=== PATIENT | female | born 1990 | race Caucasian/White ===

== ENCOUNTER 2019-06-16 06:42 | Day surgery (SDC) | payer BC, MEDICAID ==
[~2019-06-16 06:42] MED LIST: Lactated Ringers 1,000 ML IV SCH
[2019-06-16] MEDS ORDERED: Propofol 200 MG/20 ML SDV ONE (06:51)
[2019-06-16] MEDS ORDERED: Midazolam 1 MG/ML 2 ML SDV ONE (06:52)
[2019-06-16] MEDS ORDERED: fentaNYL 100 MCG/2 ML SDV ONE ×2 (06:52→08:20)
[2019-06-16] MEDS ORDERED: Glycopyrrolate 0.2 MG/ML SDV ONE (06:54)
[2019-06-16] MEDS ORDERED: Ketorolac 30 MG/ML SDV ONE (06:54)
[2019-06-16] MEDS ORDERED: Lidocaine 2% 5 ML SDV ONE (06:54)
[2019-06-16] MEDS ORDERED: Rocuronium 100 MG/10 ML Syringe ONE (06:54)
[2019-06-16] MEDS ORDERED: Ondansetron 4 MG/2 ML SDV ONE (06:54)
[2019-06-16] MEDS ORDERED: Sugammadex Sodium 200 MG/2 ML VIAL ONE (06:56)
[2019-06-16] MEDS ORDERED: Fluorescein 5 ML Vial ONE (07:24)
--- NOTE | 2019-06-16 07:34 | PCM.PREANE ---
Preanesthetic Assessment - Anesthesia/Transfusion/Family Hx Anesthesia History: Prior Anesthesia Without Reaction Other Type of Anesthesia Reaction Comment: "my mother is hard to wake after anesthesia" Family History of Anesthesia Reaction: No Transfusion History: No Prior Transfusion(s) - Review of Systems General: No Symptoms Pulmonary: No Symptoms Cardiovascular: No Symptoms Gastrointestinal: No Symptoms Neurological: No Symptoms - Physical Assessment NPO Status Date: 06/16/19 NPO Status Time: 06:00 Vital Signs: Last Vital Signs Temp 96.4 F 06/16/19 06:59 Pulse 96 06/16/19 06:59 Resp 18 06/16/19 06:59 BP 140/83 06/16/19 06:59 Pulse Ox 98 06/16/19 06:59 Height: 5 ft 10 in Weight: 156.943 kg ASA Class: 2 Mental Status: Alert & Oriented x3 Airway Class: Mallampati = 2 Dentition: Reports: Normal Dentition ROM/Head Extension: Full Lungs: Clear to Auscultation, Normal Respiratory Effort Cardiovascular: Regular Rate, Regular Rhythm - Lab Values: Laboratory Last Values Urine HCG, Qual NEGATIVE (NEGATIVE) 06/16/19 06:45 - Allergies Allergies/Adverse Reactions: Allergies Allergy/AdvReac Type Severity Reaction Status Date / Time terbinafine Allergy Hives Verified 06/10/19 09:12 - Blood Blood Available: No - Anesthesia Plan Pre-Op Medication Ordered: None - Acknowledgements Anesthesia Type Planned: General Anesthesia Pt an Appropriate Candidate for the Planned Anesthesia: Yes Alternatives and Risks of Anesthesia Discussed w Pt/Guardian: Yes Pt/Guardian Understands and Agrees with Anesthesia Plan: Yes Additional Comments: PMH: morbid obesity with BMI of 49, good airway, good neck, denies KENJI sx, hx of anx/dep PLAN: ga/lma or GET PreAnesthesia Questionnaire HEENT History: Reports: Other (See Below) Other HEENT History: wears glasses Cardiovascular History: Reports: None Respiratory History: Reports: Other (See Below) Other Respiratory History: asthma as a child Gastrointestinal History: Reports: Other (See Below) Other Gastrointestinal History: occasional heartburn Genitourinary History: Reports: Other (See Below) Other Genitourinary History: stress incontinence 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: Reports: Musculoskeletal History: Reports: Back Pain, Chronic, Fracture Other Musculoskeletal History: hx fx ankle as a child Neurological History: Reports: None Psychiatric History: Reports: Anxiety, Depression, PTSD Other Psychiatric History: panic disorder Endocrine/Metabolic History: Reports: Obesity/BMI 30+ Hematologic History: Reports: None Immunologic History: Reports: None Oncologic (Cancer) History: Reports: None Dermatologic History: Reports: None - Past Surgical History Head Surgeries/Procedures: Reports: None HEENT Surgical History: Reports: None Cardiovascular Surgical History: Reports: None Respiratory Surgical History: Reports: None GI Surgical History: Reports: Cholecystectomy Female Surgical History: Reports: Other (See Below) Other Female Surgeries/Procedures: abdoul salpingectomy Endocrine Surgical History: Reports: None Neurological Surgical History: Reports: None Musculoskeletal Surgical History: Reports: None Oncologic Surgical History: Reports: None Dermatological Surgical History: Reports: None - SUBSTANCE USE Smoking Status *Q: Former Smoker Tobacco Use Within Last Twelve Months: No Days Per Week of Alcohol Use: 4 Number of Drinks Per Day: 2 Total Drinks Per Week: 8 - HOME MEDS Home Medications: Home Meds Melatonin 3 mg PO BEDTIME PRN 06/10/19 [History] PARoxetine HCl [Paroxetine HCl] 20 mg PO DAILY 06/10/19 [History] lamoTRIgine [Lamotrigine] 150 mg PO DAILY 06/10/19 [History] - CURRENT (IN HOUSE) MEDS Current Meds: Current Medications Lactated Ringer's (Ringers, Lactated) 1,000 mls @ 100 mls/hr IV ASDIRECTED [facility] Last Admin: 06/16/19 07:19 Dose: 100 mls/hr Discontinued Medications Fentanyl (Sublimaze) Confirm Administered Dose 100 mcg .ROUTE .STK-MED ONE Stop: 06/16/19 06:53 Fluorescein Sodium (Ak-Fluor) Confirm Administered Dose 5 ml .ROUTE .STK-MED ONE Stop: 06/16/19 07:25 Glycopyrrolate (Robinul) Confirm Administered Dose 0.2 mg .ROUTE .STK-MED ONE Stop: 06/16/19 06:55 Ketorolac Tromethamine (Toradol) Confirm Administered Dose 30 mg .ROUTE .STK- MED ONE Stop: 06/16/19 06:55 Lidocaine (Xylocaine-Mpf 2%) Confirm Administered Dose 5 ml .ROUTE .STK-MED ONE Stop: 06/16/19 06:55 Midazolam HCl (Versed 1 Mg/Ml) Confirm Administered Dose 2 mg .ROUTE .STK-MED ONE Stop: 06/16/19 06:53 Ondansetron HCl (Zofran) Confirm Administered Dose 4 mg .ROUTE .Jamn ONE Stop: 06/16/19 06:55 Propofol (Diprivan 20 Ml) Confirm Administered Dose 200 mg .ROUTE .Jamn ONE Stop: 06/16/19 06:52 Rocuronium [place] (Zemuron) Confirm Administered Dose 100 mg .ROUTE .Jamn ONE Stop: 06/16/19 06:55 Sugammadex Sodium (Bridion) Confirm Administered Dose 200 mg .ROUTE .Jamn ONE Stop: 06/16/19 06:57
[2019-06-16] MEDS ORDERED: Phenylephrine/Normal Saline 100 MCG/ML 10 ML Syringe ONE (08:14)
--- NOTE | 2019-06-16 09:02 | PCM.DCSUM1 ---
Discharge Summary - Hospital Course Diagnosis: Stroke: No - Discharge Data Discharge Date: 06/16/19 Discharge Disposition: Home, Self-Care 01 Condition: Good - Referral to Home Health Primary Care Physician: Aminta Levi NP - Patient Instructions Diet: Usual Diet as Tolerated Activity: As Tolerated Showering/Bathing: October Shower Notify Provider of: Fever - Discharge Plan Home Medications: Home Meds Melatonin 3 mg PO BEDTIME PRN 06/10/19 [History] PARoxetine HCl [Paroxetine HCl] 20 mg PO DAILY 06/10/19 [History] lamoTRIgine [Lamotrigine] 150 mg PO DAILY 06/10/19 [History] - Discharge Summary/Plan Comment DC Time >30 min.: Yes - General Info Date of Service: 06/16/19 Functional Status: Reports: Pain Controlled - Review of Systems General: Reports: No Symptoms HEENT: Reports: No Symptoms Pulmonary: Reports: No Symptoms Cardiovascular: Reports: No Symptoms Gastrointestinal: Reports: No Symptoms Genitourinary: Reports: No Symptoms Musculoskeletal: Reports: No Symptoms Skin: Reports: No Symptoms Neurological: Reports: No Symptoms Psychiatric: Reports: No Symptoms - Patient Data Vitals - Most Recent: Last Vital Signs Temp 37.0 C 06/16/19 08:44 Pulse 80 06/16/19 08:55 Resp 15 06/16/19 08:55 BP 101/58 L 06/16/19 08:55 Pulse Ox 95 06/16/19 08:55 Weight - Most Recent: 156.943 kg I&O - Last 24 hours: Intake & Output 06/15/19 06/16/19 06/16/19 22:59 06:59 14:59 Intake Total 800 Balance 800 Lab Results - Last 24 hrs: Laboratory Results - last 24 hr 06/16/19 Range/Units 06:45 Urine HCG, Qual NEGATIVE (NEGATIVE) Med Orders - Current: Current Medications Lactated Ringer's (Ringers, Lactated) 1,000 mls @ 100 mls/hr IV ASDIRECTED [facility] Last Admin: 06/16/19 07:19 Dose: 100 mls/hr Discontinued Medications Fentanyl (Sublimaze) Confirm Administered Dose 100 mcg .ROUTE .STK-MED ONE Stop: 06/16/19 06:53 Fentanyl (Sublimaze) Confirm Administered Dose 100 mcg .ROUTE .STK-MED ONE Stop: 06/16/19 08:21 Fluorescein Sodium (Ak-Fluor) Confirm Administered Dose 5 ml .ROUTE .STK-MED ONE Stop: 06/16/19 07:25 Glycopyrrolate (Robinul) Confirm Administered Dose 0.2 mg .ROUTE .STK-MED ONE Stop: 06/16/19 06:55 Ketorolac Tromethamine (Toradol) Confirm Administered Dose 30 mg .ROUTE .STK- MED ONE Stop: 06/16/19 06:55 Lidocaine (Xylocaine-Mpf 2%) Confirm Administered Dose 5 ml .ROUTE .STK-MED ONE Stop: 06/16/19 06:55 Midazolam HCl (Versed 1 Mg/Ml) Confirm Administered Dose 2 mg .ROUTE .STK-MED ONE Stop: 06/16/19 06:53 Ondansetron HCl (Zofran) Confirm Administered Dose 4 mg .ROUTE .STK-MED ONE Stop: 06/16/19 06:55 Phenylephrine HCl (Phenylephrine In Ns 100 Mcg/Ml) Confirm Administered Dose 1 mg .ROUTE .STK-MED ONE Stop: 06/16/19 08:15 Propofol (Diprivan 20 Ml) Confirm Administered Dose 200 mg .ROUTE .STK-MED ONE Stop: 06/16/19 06:52 Rocuronium [place] (Zemuron) Confirm Administered Dose 100 mg .ROUTE .STK-MED ONE Stop: 06/16/19 06:55 Sugammadex Sodium (Bridion) Confirm Administered Dose 200 mg .ROUTE .STK-MED ONE Stop: 06/16/19 06:57 - Exam General: Reports: Alert, Oriented HEENT: Reports: Pupils Equal, Pupils Reactive, EOMI, Mucous Membr. Moist/Burr Neck: Reports: Supple Lungs: Reports: Clear to Auscultation, Normal Respiratory Effort Cardiovascular: Reports: Regular Rate, Regular Rhythm GI/Abdominal Exam: Normal Bowel Sounds, Soft, Non-Tender, No Organomegaly, No Distention, No Abnormal Bruit, No Mass, Pelvis Stable (Female) Exam: Normal External Exam, Normal Speculum Exam, Normal Bimanual Exam Rectal (Female) Exam: Normal Exam, Normal Rectal Tone Back Exam: Reports: Normal Inspection, Full Range of Motion Extremities: Normal Inspection, Normal Range of Motion, Non-Tender, No Pedal Edema, Normal Capillary Refill Skin: Reports: Warm, Dry, Intact Wound/Incisions: Reports: Healing Well Neurological: Reports: No New Focal Deficit Psy/Mental Status: Reports: Alert, Normal Affect, Normal Mood
--- NOTE | 2019-06-16 09:03 | PCM.OPNOTE ---
- General Post-Op/Procedure Note Date of Surgery/Procedure: 06/16/19 Operative Procedure(s): TVT and Ctstoscopy. Post-Op Diagnosis: Same Anesthesia Technique: General LMA Primary Surgeon: Hugo Madden EBL in mLs: 50 Complications: None Condition: Good Free Text/Narrative:: Intake & Output 06/15/19 06/16/19 06/16/19 22:59 06:59 14:59 Intake Total 800 Balance 800
--- NOTE | 2019-06-16 10:01 | PCM.POSTAN ---
POST ANESTHESIA ASSESSMENT - MENTAL STATUS Mental Status: Alert, Oriented - VITAL SIGNS Vital Signs: Last Vital Signs Temp 98.4 F 06/16/19 09:10 Pulse 73 06/16/19 09:10 Resp 15 06/16/19 09:10 BP 105/58 L 06/16/19 09:10 Pulse Ox 98 06/16/19 09:10 - RESPIRATORY Respiratory Status: Respiratory Rate WNL, Airway Patent, O2 Saturation Stable - CARDIOVASCULAR CV Status: Pulse Rate WNL, Blood Pressure Stable - GASTROINTESTINAL GI Status: No Symptoms - POST OP HYDRATION Hydration Status: Adequate & Stable
--- NOTE | 2019-06-16 10:02 | PCM48HPAN ---
Post Anesthesia Note - EVALUATION WITHIN 48HRS OF ANESTHETIC Vital Signs in Normal Range: Yes Patient Participated in Evaluation: Yes Respiratory Function Stable: Yes Airway Patent: Yes Cardiovascular Function Stable: Yes Hydration Status Stable: Yes Pain Control Satisfactory: Yes Nausea and Vomiting Control Satisfactory: Yes Mental Status Recovered: Yes Vital Signs: Last Vital Signs Temp 98.4 F 06/16/19 09:10 Pulse 73 06/16/19 09:10 Resp 15 06/16/19 09:10 BP 105/58 L 06/16/19 09:10 Pulse Ox 98 06/16/19 09:10
--- NOTE | 2019-06-16 11:02 | OR ---
SURGEON: Hugo Madden MD DATE OF PROCEDURE: PREOPERATIVE DIAGNOSIS: Stress urinary incontinence. POSTOPERATIVE DIAGNOSIS: Stress urinary incontinence. OPERATION PERFORMED: Solyx TVT with cystoscopy. PRIMARY SURGEON: Hugo Madden MD. JEWEL[employer] SALES: OR tech. ANESTHESIA: General LMA. ESTIMATED BLOOD LOSS: 50 to 75 mL. COMPLICATIONS: None. FINDING: Stress urinary incontinence. INDICATIONS FOR SURGERY: [place] referred to the admit note. PROCEDURE IN DETAIL: The patient was brought to the OR, properly identified, and after adequate level of anesthesia, the patient was placed in lithotomy position, prepped and draped in sterile fashion as usual. Straight catheter was used to empty the bladder and then midurethral space was infiltrated with copious amount of normal saline and using electrocautery was opened in the midline and then the vaginal terry dissected in a tunneling fashion to make room for the Solyx. When entered, the surgeon could feel the pubic rami on both sides. Then, the Solyx TVT was placed within place with a due amount of tension to elevate the urethrovesical angle. Once this was done, we asked Anesthesia to give the patient fluorescein and then we proceeded to close the vaginal cuff with 3-0 Vicryl continuous interlocking for hemostasis. After that, cystoscopy performed, the bladder was intact. Both ureteric orifices seen with the dye coming from both of them. Thus, patency of both ureters verified. Satisfied with these findings, the procedure ended. The instrument and sponge count was correct. The patient tolerated the procedure well, went to recovery room in stable general condition. KACOLETTEFAR / JUJU /[id number]
== END 2019-06-16 09:46 | disposition home or self-care (01) ==
LOC: MW.SDS 06:42
PROVIDERS: ATTEND Obstetrics & Gynecology
DX: N39.3 Stress incontinence (female) (male) (principal); N39.45 Continuous leakage; J45.909 Unspecified asthma, uncomplicated; F41.9 Anxiety disorder, unspecified; F32.9 Major depressive disorder, single episode, unspecified; E66.9 Obesity, unspecified; Z68.42 Body mass index [BMI] 45.0-49.9, adult; Z87.891 Personal history of nicotine dependence; Z88.8 Allergy status to other drugs, medicaments and biological substances
CPT/HCPCS: 57288; 81025; J1885; J2001; J2250; J2370; J2405; J2704; J3010; J3490; J7120; 00860; C1771

== ENCOUNTER 2019-11-02 10:40 | Day surgery (SDC) | payer BC, MEDICAID ==
[2019-11-02] MEDS ORDERED: Sodium Chloride 0.9% 2.5 ML Syringe FLUSH PRN ×2 (10:57→13:25)
[2019-11-02] MEDS ORDERED: Sodium Chloride 0.9% 10 ML Syringe FLUSH PRN ×2 (10:57→13:25)
[2019-11-02] MEDS ORDERED: Ketorolac 30 MG/ML SDV IVPUSH ONE (11:06)
[2019-11-02] MEDS ORDERED: Sodium Chloride 0.9% 1,000 ML IV ONE (11:06)
--- NOTE | 2019-11-02 11:07 | EDM.PDOC ---
ED HPI GENERAL MEDICAL PROBLEM - General Chief Complaint: Abdominal Pain Stated Complaint: LOWER ABDOMINAL PAIN Time Seen by Provider: 11/02/19 11:03 Source of Information: Reports: Patient History Limitations: Reports: No Limitations - History of Present Illness INITIAL COMMENTS - FREE TEXT/NARRATIVE: HISTORY AND PHYSICAL: History of present illness: Patient is a 29-year-old female presents to the ED with complaint of right lower abdominal pain. Patient states that the pain started 2 days ago, is worse with movement. Pain starts in the right lower abdomen and radiates to her umbilicus. She states she has had some nausea, vomiting, and non bloody diarrhea. Denies fevers, dysuria, hematuria. She has not had an appetite and last ate last night. She has history of pelvic surgery with a bladder sling as well as a cholecystectomy. Review of systems: As per history of present illness and below otherwise all systems reviewed and negative. Past medical history: As per history of present illness and as reviewed below otherwise noncontributory. Surgical history: As per history of present illness and as reviewed below otherwise noncontributory. Social history: No reported history of drug or alcohol abuse. Family history: As per history of present illness and as reviewed below otherwise noncontributory. Physical exam: General: Patient sitting comfortably in no acute distress and nontoxic appearing HEENT: Atraumatic, normocephalic, pupils reactive, negative for conjunctival pallor or scleral icterus, mucous membranes moist, throat clear, neck supple, nontender, trachea midline. No meningeal signs. Lungs: Clear to auscultation, breath sounds equal bilaterally, chest nontender. Heart: S1S2, regular, negative for clicks, rubs, or overt murmur. Abdomen: right lower quadrant tenderness to palpation with rebound and guarding. Negative for masses or hepatosplenomegaly. Negative for costovertebral tenderness. Pelvis: Stable nontender. Genitourinary: Deferred. Rectal: Deferred. Extremities: Atraumatic, negative for cords or calf pain. Neurovascular unremarkable. Neuro: Awake, alert, oriented. Cranial nerves II through XII unremarkable. Cerebellum unremarkable. Motor and sensory unremarkable throughout. Exam nonfocal. Notes: 1250 - discussed findings of appendicitis with Dr. Bae, he will evaluate patient in the ED. Diagnostics: CBC, CMP, UA, urine hcg Therapeutics: 1L NS IV 30mg Toradol IV Prescriptions: Impression: Appendicitis Plan: Patient to OR for appendectomy Definitive disposition and diagnosis as appropriate pending reevaluation and review of above. right lower abdomen Pain Score (Numeric/FACES): 5 - Related Data Allergies Allergy/AdvReac Type Severity Reaction Status Date / Time terbinafine Allergy Hives Verified 11/02/19 10:53 Home Meds: Home Meds Melatonin 3 mg PO BEDTIME PRN 06/10/19 [History] lamoTRIgine [Lamotrigine] 150 mg PO DAILY 06/10/19 [History] Escitalopram Oxalate [Lexapro] 10 mg PO DAILY 11/02/19 [History] hydrOXYzine HCL [hydrOXYzine] 0.5 tab PO DAILY PRN 11/02/19 [History] Past Medical History HEENT History: Reports: Other (See Below) Other HEENT History: wears glasses Cardiovascular History: Reports: None Respiratory History: Reports: Other (See Below) Other Respiratory History: asthma as a child Gastrointestinal History: Reports: Other (See Below) Other Gastrointestinal History: occasional heartburn Genitourinary History: Reports: Other (See Below) Other Genitourinary History: stress incontinence [employer]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 [employer] History: Reports: Musculoskeletal History: Reports: Back Pain, Chronic, Fracture Other Musculoskeletal History: hx fx ankle as a child Neurological History: Reports: None Psychiatric History: Reports: Anxiety, Depression, PTSD Other Psychiatric History: panic disorder Endocrine/Metabolic History: Reports: Obesity/BMI 30+ Hematologic History: Reports: None Immunologic History: Reports: None Oncologic (Cancer) History: Reports: None Dermatologic History: Reports: None - Infectious Disease History Infectious Disease History: Reports: Chicken Pox, MRSA - Past Surgical History Head Surgeries/Procedures: Reports: None HEENT Surgical History: Reports: None Cardiovascular Surgical History: Reports: None Respiratory Surgical History: Reports: None GI Surgical History: Reports: Cholecystectomy Female Surgical History: Reports: Other (See Below) Other Female Surgeries/Procedures: abdoul salpingectomy, TVT Endocrine Surgical History: Reports: None Neurological Surgical History: Reports: None Musculoskeletal Surgical History: Reports: None Oncologic Surgical History: Reports: None Dermatological Surgical History: Reports: None Social & Family History - Family History Family Medical History: Noncontributory - Tobacco Use Smoking Status *Q: Never Smoker - Alcohol Use Days Per Week of Alcohol Use: 5 Number of Drinks Per Day: 4 Total Drinks Per Week: 20 - Recreational Drug Use Recreational Drug Use: No ED ROS GENERAL - Review of Systems Review Of Systems: Comprehensive ROS is negative, except as noted in HPI. ED EXAM, GI/ABD - Physical Exam Exam: See Below (see dictation) Course - Vital Signs Last Recorded V/S: Last Vital Signs Temp 97.3 F 11/02/19 13:47 Pulse 88 11/02/19 13:47 Resp 17 11/02/19 13:47 BP 140/79 11/02/19 13:47 Pulse Ox 98 11/02/19 13:47 - Orders/Labs/Meds Orders: Active Orders 24 hr Category Date Time Status Admission Status [Patient Status] [ADT] Stat ADT 11/02/19 13:02 Ordered Verify Patient Consent Obtain [RC] ASDIRECTED Care 11/02/19 13:25 Active Verify Patient Consent Obtain [RC] ASDIRECTED Care 11/02/19 13:34 Active NPO Now [Nothing per Oral Now Diet] [DIET] Diet 11/02/19 Dinner Active Nothing per Oral Now Diet [DIET] Diet 11/02/19 Breakfast Active Lactated Ringers [Ringers, Lactated] 1,000 ml Med 11/02/19 13:45 Active IV ASDIRECTED Sodium Chloride 0.9% [Normal Saline] Med 11/02/19 13:25 Active 10 ml IV ASDIRECTED PRN Sodium Chloride 0.9% [Saline Flush] Med 11/02/19 10:57 Active 10 ml FLUSH ASDIRECTED PRN Sodium Chloride 0.9% [Saline Flush] Med 11/02/19 13:25 Active 10 ml FLUSH ASDIRECTED PRN Sodium Chloride 0.9% [Saline Flush] Med 11/02/19 10:57 Active 2.5 ml FLUSH ASDIRECTED PRN Sodium Chloride 0.9% [Saline Flush] Med 11/02/19 13:25 Active 2.5 ml FLUSH ASDIRECTED PRN Medication Administration Instruction [OM.PC] Routine Oth 11/02/19 13:25 Ordered Peripheral IV Insertion Adult [OM.PC] Routine Oth 11/02/19 13:25 Ordered Saline Lock Insert [OM.PC] Stat Oth 11/02/19 10:57 Ordered Medication Orders Lactated Ringer's (Ringers, Lactated) 1,000 mls @ 150 mls/hr IV ASDIRECTED ANJALI Last Admin: 11/02/19 13:44 Dose: 150 mls/hr Sodium Chloride (Saline Flush) 10 ml FLUSH ASDIRECTED PRN PRN Reason: Keep Vein Open Last Admin: 11/02/19 11:36 Dose: 10 ml Sodium Chloride (Saline Flush) 2.5 ml FLUSH ASDIRECTED PRN PRN Reason: Keep Vein Open Last Admin: 11/02/19 11:36 Dose: 2.5 ml Sodium Chloride (Saline Flush) 10 ml FLUSH ASDIRECTED PRN PRN Reason: Keep Vein Open Last Admin: 11/02/19 13:45 Dose: 10 ml Sodium Chloride (Saline Flush) 2.5 ml FLUSH ASDIRECTED PRN PRN Reason: Keep Vein Open Last Admin: 11/02/19 13:45 Dose: 2.5 ml Sodium Chloride (Normal Saline) 10 ml IV ASDIRECTED PRN PRN Reason: IV Use Last Admin: 11/02/19 13:45 Dose: 10 ml Labs: Laboratory Tests 11/02/19 11/02/19 11/02/19 Range/Units 11:06 11:06 11:08 WBC 12.04 H (4.0-11.0) K/uL RBC 4.23 L (4.30-5.90) M/uL Hgb 12.6 (12.0-16.0) g/dL Hct 39.1 (36.0-46.0) % MCV 92.4 (80.0-98.0) fL MCH 29.8 (27.0-32.0) pg MCHC 32.2 (31.0-37.0) g/dL RDW Std Deviation 48.3 (28.0-62.0) fl RDW Coeff of Yolanda 14 (11.0-15.0) % Plt Count 323 (150-400) K/uL MPV 9.80 (7.40-12.00) fL Neut % (Auto) 72.2 (48.0-80.0) % Lymph % (Auto) 18.4 (16.0-40.0) % [place] % (Auto) 6.5 (0.0-15.0) % Eos % (Auto) 2.7 (0.0-7.0) % Baso % (Auto) 0.2 (0.0-1.5) % Neut # (Auto) 8.7 H (1.4-5.7) K/uL Lymph # (Auto) 2.2 (0.6-2.4) K/uL [place] # (Auto) 0.8 (0.0-0.8) K/uL Eos # (Auto) 0.3 (0.0-0.7) K/uL Baso # (Auto) 0.0 (0.0-0.1) K/uL Nucleated RBC % 0.0 /100WBC Nucleated RBCs # 0 K/uL Sodium (136-145) mmol/L Potassium (3.5-5.1) mmol/L Chloride (98-107) mmol/L Carbon Dioxide (21.0-32.0) mmol/L BUN (7.0-18.0) mg/dL Creatinine (0.6-1.0) mg/dL Est Cr Clr Drug Dosing mL/min Estimated GFR (MDRD) ml/min Glucose (74-106) mg/dL Calcium (8.5-10.1) mg/dL Total Bilirubin (0.2-1.0) mg/dL AST (15-37) IU/L ALT (14-63) IU/L Alkaline Phosphatase (46-116) U/L Total Protein (6.4-8.2) g/dL Albumin (3.4-5.0) g/dL Globulin (2.6-4.0) g/dL Albumin/Globulin Ratio (0.9-1.6) Urine Color YELLOW Urine Appearance CLEAR Urine pH 6.0 (5.0-8.0) Ur Specific [place] 1.010 (1.001-1.035) Urine Protein NEGATIVE (NEGATIVE) mg/dL Urine Glucose (UA) NEGATIVE (NEGATIVE) mg/dL Urine Ketones NEGATIVE (NEGATIVE) mg/dL Urine Occult Blood TRACE-INTACT H (NEGATIVE) Urine Nitrite NEGATIVE (NEGATIVE) Urine Bilirubin NEGATIVE (NEGATIVE) Urine Urobilinogen 0.2 (<2.0) EU/dL Ur Leukocyte Esterase NEGATIVE (NEGATIVE) Urine RBC 0-2 (0-2/HPF) Urine WBC 0-1 (0-5/HPF) Ur Epithelial Cells OCCASIONAL (NONE-FEW) Urine Bacteria FEW (NEGATIVE) Urine HCG, Qual NEGATIVE (NEGATIVE) SARS-CoV-2 RNA (RT-PCR) (NEGATIVE) 11/02/19 11/02/19 Range/Units 11:08 13:27 WBC (4.0-11.0) K/uL RBC (4.30-5.90) M/uL Hgb (12.0-16.0) g/dL Hct (36.0-46.0) % MCV (80.0-98.0) fL MCH (27.0-32.0) pg MCHC (31.0-37.0) g/dL RDW Std Deviation (28.0-62.0) fl RDW Coeff of Yolanda (11.0-15.0) % Plt Count (150-400) K/uL MPV (7.40-12.00) fL Neut % (Auto) (48.0-80.0) % Lymph % (Auto) (16.0-40.0) % [place] % (Auto) (0.0-15.0) % Eos % (Auto) (0.0-7.0) % Baso % (Auto) (0.0-1.5) % Neut # (Auto) (1.4-5.7) K/uL Lymph # (Auto) (0.6-2.4) K/uL [place] # (Auto) (0.0-0.8) K/uL Eos # (Auto) (0.0-0.7) K/uL Baso # (Auto) (0.0-0.1) K/uL Nucleated RBC % /100WBC Nucleated RBCs # K/uL Sodium 138 (136-145) mmol/L Potassium 4.1 (3.5-5.1) mmol/L Chloride 101 (98-107) mmol/L Carbon Dioxide 27.3 (21.0-32.0) mmol/L BUN 9 (7.0-18.0) mg/dL Creatinine 1.0 (0.6-1.0) mg/dL Est Cr Clr Drug Dosing 88.31 mL/min Estimated GFR (MDRD) > 60.0 ml/min Glucose 110 H (74-106) mg/dL Calcium 8.7 (8.5-10.1) mg/dL Total Bilirubin 0.7 (0.2-1.0) mg/dL AST 43 H (15-37) IU/L ALT 31 (14-63) IU/L Alkaline Phosphatase 87 (46-116) U/L Total Protein 7.6 (6.4-8.2) g/dL Albumin 3.7 (3.4-5.0) g/dL Globulin 3.9 (2.6-4.0) g/dL Albumin/Globulin Ratio 0.9 (0.9-1.6) Urine Color Urine Appearance Urine pH (5.0-8.0) Ur Specific [place] (1.001-1.035) Urine Protein (NEGATIVE) mg/dL Urine Glucose (UA) (NEGATIVE) mg/dL Urine Ketones (NEGATIVE) mg/dL Urine Occult Blood (NEGATIVE) Urine Nitrite (NEGATIVE) Urine Bilirubin (NEGATIVE) Urine Urobilinogen (<2.0) EU/dL Ur Leukocyte Esterase (NEGATIVE) Urine RBC (0-2/HPF) Urine WBC (0-5/HPF) Ur Epithelial Cells (NONE-FEW) Urine Bacteria (NEGATIVE) Urine HCG, Qual (NEGATIVE) SARS-CoV-2 RNA (RT-PCR) NEGATIVE (NEGATIVE) Meds: Medications Generic Name Dose Route Start Last Admin Trade Name Freq PRN Reason Stop Dose Admin Lactated Ringer's 1,000 mls @ 150 mls/hr 11/02/19 13:45 11/02/19 13:44 Ringers, Lactated IV 150 mls/hr ASDIRECTED ANJALI Administration Sodium Chloride 10 ml 11/02/19 10:57 11/02/19 11:36 Saline Flush FLUSH 10 ml ASDIRECTED PRN Administration Keep Vein Open Sodium Chloride 2.5 ml 11/02/19 10:57 11/02/19 11:36 Saline Flush FLUSH 2.5 ml ASDIRECTED PRN Administration Keep Vein Open Sodium Chloride 10 ml 11/02/19 13:25 11/02/19 13:45 Saline Flush FLUSH 10 ml ASDIRECTED PRN Administration Keep Vein Open Sodium Chloride 2.5 ml 11/02/19 13:25 11/02/19 13:45 Saline Flush FLUSH 2.5 ml ASDIRECTED PRN Administration Keep Vein Open Sodium Chloride 10 ml 11/02/19 13:25 11/02/19 13:45 Normal Saline IV 10 ml ASDIRECTED PRN Administration IV Use Discontinued Medications Generic Name Dose Route Start Last Admin Trade Name Jose PRN Reason Stop Dose Admin Bupivacaine HCl/Epinephrine Bitart Confirm 11/02/19 13:17 Marcaine 0.25%/Epinephrine 1:200,000 Administered 11/02/19 13:18 Dose 20 ml .ROUTE .STK-MED ONE Dexamethasone Confirm 11/02/19 13:19 Dexamethasone Administered 11/02/19 13:20 Dose 20 mg .ROUTE .STK-MED ONE Fentanyl Confirm 11/02/19 13:19 Sublimaze Administered 11/02/19 13:20 Dose 250 mcg .ROUTE .STK-MED ONE Sodium Chloride 1,000 mls @ 999 mls/hr 11/02/19 11:06 11/02/19 11:22 Normal Saline IV 11/02/19 12:06 999 mls/hr STAT ONE Administration Acetaminophen Confirm 11/02/19 13:20 Ofirmev Administered 11/02/19 13:21 Dose 100 mls @ as directed .ROUTE .STK-MED ONE Cefoxitin Sodium 2 gm/ Premix 50 mls @ 100 mls/hr 11/02/19 13:32 11/02/19 13: 44 IV 11/02/19 14:01 100 mls/hr ONETIME ONE Administration Iopamidol 100 ml 11/02/19 12:13 11/02/19 12:25 Isovue Multipack-370 (76%) IVPUSH 11/02/19 12:14 100 ml ONETIME STA Administration Ketorolac Tromethamine 30 mg 11/02/19 11:06 11/02/19 11:22 Toradol IVPUSH 11/02/19 11:07 30 mg ONETIME ONE Administration Lidocaine Confirm 11/02/19 13:19 Xylocaine-Mpf 2% Administered 11/02/19 13:20 Dose 5 ml .ROUTE .STK-MED ONE Midazolam HCl Confirm 11/02/19 13:20 Versed 1 Mg/Ml Administered 11/02/19 13:21 Dose 2 mg .ROUTE .STK-MED ONE Ondansetron HCl Confirm 11/02/19 13:19 Zofran Administered 11/02/19 13:20 Dose 4 mg .ROUTE .STK-MED ONE Propofol Confirm 11/02/19 13:19 Diprivan 20 Ml Administered 11/02/19 13:20 Dose 200 mg .ROUTE .STK-MED ONE Rocuronium [place] Confirm 11/02/19 13:19 Zemuron Administered 11/02/19 13:20 Dose 100 mg .ROUTE .STK-MED ONE Sugammadex Sodium Confirm 11/02/19 13:19 Bridion Administered 11/02/19 13:20 Dose 400 mg .ROUTE .STK-MED ONE Departure - Departure Time of Disposition: 14:07 Disposition: Still A Patient 30 Condition: Good Clinical Impression: Appendicitis - Discharge Information Referrals: Farheen Levi NP [Primary Care Provider] - Forms: ED Department Discharge Sepsis Event Note - Evaluation Sepsis Screening Result: No Definite Risk - Focused Exam Vital Signs: Vital Signs Temp Pulse Resp BP Pulse Ox 11/02/19 13:47 97.3 F 88 17 140/79 98 11/02/19 12:40 97.1 F 77 15 115/57 L 100 11/02/19 10:51 96.5 F L 108 H 16 125/82 97 Date Exam was Performed: 11/02/19 Time Exam was Performed: 14:07 - My Orders Last 24 Hours: My Active Orders 11/02/19 10:57 Sodium Chloride 0.9% [Saline Flush] 10 ml FLUSH ASDIRECTED PRN Sodium Chloride 0.9% [Saline Flush] 2.5 ml FLUSH ASDIRECTED PRN Saline Lock Insert [OM.PC] Stat 11/02/19 13:02 Admission Status [Patient Status] [ADT] Stat - Assessment/Plan Last 24 Hours: My Active Orders 11/02/19 10:57 Sodium Chloride 0.9% [Saline Flush] 10 ml FLUSH ASDIRECTED PRN Sodium Chloride 0.9% [Saline Flush] 2.5 ml FLUSH ASDIRECTED PRN Saline Lock Insert [OM.PC] Stat 11/02/19 13:02 Admission Status [Patient Status] [ADT] Stat
[2019-11-02 11:48] LABS: BLOOD UREA NITROGEN,BUN 9 mg/dL (7.0-18.0); CARBON DIOXIDE,CO2 27.3 mmol/L (21.0-32.0); CHLORIDE,CL 101 mmol/L (98-107); GLUCOSE RANDOM 110 mg/dL (74-106); POTASSIUM,K 4.1 mmol/L (3.5-5.1); SODIUM,NA 138 mmol/L (136-145)
[2019-11-02] MEDS ORDERED: Iopamidol 755 MG/ML 500 ML Multipack Bottle IVPUSH STA (12:13)
--- NOTE | 2019-11-02 12:44 | CT ---
CT abdomen and pelvis Technique: Multiple axial sections were obtained from above the dome of the diaphragm inferiorly through the pubic symphysis. Intravenous contrast was given. No oral contrast was utilized. Findings: Dilated appendix is seen with surrounding inflammatory change. There is an appendicolith being seen at the base of the appendix. Other findings: Visualized lung bases show nothing acute. Liver contains no focal parenchymal abnormality. Surgical clips are seen from prior cholecystectomy. Spleen appears within normal limits. Adrenal glands show no nodule. Kidneys show symmetric contrast enhancement without hydronephrosis or mass. Pancreas appears normal. Aorta shows no aneurysm. No retroperitoneal adenopathy or mesenteric abnormalities are seen. No pelvic mass or adenopathy is seen. No free fluid is identified. Bone window settings were reviewed which show no acute osseous finding. Impression: 1. Findings compatible with appendicitis as described above. 2. No other acute finding is seen. Diagnostic code #5 This report was dictated in MDT
--- NOTE | 2019-11-02 13:12 | PCM.PREANE ---
Preanesthetic Assessment - Anesthesia/Transfusion/Family Hx Anesthesia History: Prior Anesthesia Without Reaction Other Type of Anesthesia Reaction Comment: "my mother is hard to wake after anesthesia" Family History of Anesthesia Reaction: No Transfusion History: No Prior Transfusion(s) - Review of Systems General: Appetite Pulmonary: No Symptoms Cardiovascular: No Symptoms Gastrointestinal: No Symptoms Neurological: No Symptoms Other: Reports: None - Physical Assessment NPO Status Date: 11/01/19 NPO Status Time: 22:00 Vital Signs: Last Vital Signs Temp 97.1 F 11/02/19 12:40 Pulse 77 11/02/19 12:40 Resp 15 11/02/19 12:40 BP 115/57 L 11/02/19 12:40 Pulse Ox 100 11/02/19 12:40 Height: 5 ft 9 in Weight: 154.221 kg ASA Class: 3E Mental Status: Alert & Oriented x3 Airway Class: Mallampati = 2 Dentition: Reports: Normal Dentition Thyro-Mental Finger Breadths: 3 Mouth Opening Finger Breadths: 3 ROM/Head Extension: Full Lungs: Clear to Auscultation, Normal Respiratory Effort Cardiovascular: Regular Rate, Regular Rhythm - Lab Values: Laboratory Last Values WBC 12.04 K/uL (4.0-11.0) H 11/02/19 11:08 RBC 4.23 M/uL (4.30-5.90) L 11/02/19 11:08 Hgb 12.6 g/dL (12.0-16.0) 11/02/19 11:08 Hct 39.1 % (36.0-46.0) 11/02/19 11:08 MCV 92.4 fL (80.0-98.0) 11/02/19 11:08 MCH 29.8 pg (27.0-32.0) 11/02/19 11:08 MCHC 32.2 g/dL (31.0-37.0) 11/02/19 11:08 RDW Std Deviation 48.3 fl (28.0-62.0) 11/02/19 11:08 RDW Coeff of Yolanda 14 % (11.0-15.0) 11/02/19 11:08 Plt Count 323 K/uL (150-400) 11/02/19 11:08 MPV 9.80 fL (7.40-12.00) 11/02/19 11:08 Neut % (Auto) 72.2 % (48.0-80.0) 11/02/19 11:08 Lymph % (Auto) 18.4 % (16.0-40.0) 11/02/19 11:08 [place] % (Auto) 6.5 % (0.0-15.0) 11/02/19 11:08 Eos % (Auto) 2.7 % (0.0-7.0) 11/02/19 11:08 Baso % (Auto) 0.2 % (0.0-1.5) 11/02/19 11:08 Neut # (Auto) 8.7 K/uL (1.4-5.7) H 11/02/19 11:08 Lymph # (Auto) 2.2 K/uL (0.6-2.4) 11/02/19 11:08 [place] # (Auto) 0.8 K/uL (0.0-0.8) 11/02/19 11:08 Eos # (Auto) 0.3 K/uL (0.0-0.7) 11/02/19 11:08 Baso # (Auto) 0.0 K/uL (0.0-0.1) 11/02/19 11:08 Nucleated RBC % 0.0 /100WBC 11/02/19 11:08 Nucleated RBCs # 0 K/uL 11/02/19 11:08 Sodium 138 mmol/L (136-145) 11/02/19 11:08 Potassium 4.1 mmol/L (3.5-5.1) 11/02/19 11:08 Chloride 101 mmol/L (98-107) 11/02/19 11:08 Carbon Dioxide 27.3 mmol/L (21.0-32.0) 11/02/19 11:08 BUN 9 mg/dL (7.0-18.0) 11/02/19 11:08 Creatinine 1.0 mg/dL (0.6-1.0) 11/02/19 11:08 Est Cr Clr Drug Dosing 88.31 mL/min 11/02/19 11:08 Estimated GFR (MDRD) > 60.0 ml/min 11/02/19 11:08 Glucose 110 mg/dL (74-106) H 11/02/19 11:08 Calcium 8.7 mg/dL (8.5-10.1) 11/02/19 11:08 Total Bilirubin 0.7 mg/dL (0.2-1.0) 11/02/19 11:08 AST 43 IU/L (15-37) H 11/02/19 11:08 ALT 31 IU/L (14-63) 11/02/19 11:08 Alkaline Phosphatase 87 U/L (46-116) 11/02/19 11:08 Total Protein 7.6 g/dL (6.4-8.2) 11/02/19 11:08 Albumin 3.7 g/dL (3.4-5.0) 11/02/19 11:08 Globulin 3.9 g/dL (2.6-4.0) 11/02/19 11:08 Albumin/Globulin Ratio 0.9 (0.9-1.6) 11/02/19 11:08 Urine Color YELLOW 11/02/19 11:06 Urine Appearance CLEAR 11/02/19 11:06 Urine pH 6.0 (5.0-8.0) 11/02/19 11:06 Ur Specific [place] 1.010 (1.001-1.035) 11/02/19 11:06 Urine Protein NEGATIVE mg/dL (NEGATIVE) 11/02/19 11:06 Urine Glucose (UA) NEGATIVE mg/dL (NEGATIVE) 11/02/19 11:06 Urine Ketones NEGATIVE mg/dL (NEGATIVE) 11/02/19 11:06 Urine Occult Blood TRACE-INTACT (NEGATIVE) H 11/02/19 11:06 Urine Nitrite NEGATIVE (NEGATIVE) 11/02/19 11:06 Urine Bilirubin NEGATIVE (NEGATIVE) 11/02/19 11:06 Urine Urobilinogen 0.2 EU/dL (<2.0) 11/02/19 11:06 Ur Leukocyte Esterase NEGATIVE (NEGATIVE) 11/02/19 11:06 Urine RBC 0-2 (0-2/HPF) 11/02/19 11:06 Urine WBC 0-1 (0-5/HPF) 11/02/19 11:06 Ur Epithelial Cells OCCASIONAL (NONE-FEW) 11/02/19 11:06 Urine Bacteria FEW (NEGATIVE) 11/02/19 11:06 Urine HCG, Qual NEGATIVE (NEGATIVE) 11/02/19 11:06 - Allergies Allergies/Adverse Reactions: Allergies Allergy/AdvReac Type Severity Reaction Status Date / Time terbinafine Allergy Hives Verified 11/02/19 10:53 - Anesthesia Plan Free Text/Narrative:: COVID testing is pending at this time. - Acknowledgements Anesthesia Type Planned: General Anesthesia Pt an Appropriate Candidate for the Planned Anesthesia: Yes Alternatives and Risks of Anesthesia Discussed w Pt/Guardian: Yes Pt/Guardian Understands and Agrees with Anesthesia Plan: Yes PreAnesthesia Questionnaire HEENT History: Reports: Other (See Below) Other HEENT History: wears glasses Cardiovascular History: Reports: None Respiratory History: Reports: Other (See Below) Other Respiratory History: asthma as a child Gastrointestinal History: Reports: Other (See Below) Other Gastrointestinal History: occasional heartburn Genitourinary History: Reports: Other (See Below) Other Genitourinary History: stress incontinence 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 HAND History: Reports: Musculoskeletal History: Reports: Back Pain, Chronic, Fracture Other Musculoskeletal History: hx fx ankle as a child Neurological History: Reports: None Psychiatric History: Reports: Anxiety, Depression, PTSD Other Psychiatric History: panic disorder Endocrine/Metabolic History: Reports: Obesity/BMI 30+ (Morbid Obesity) Hematologic History: Reports: None Immunologic History: Reports: None Oncologic (Cancer) History: Reports: None Dermatologic History: Reports: None - Infectious Disease History Infectious Disease History: Reports: Chicken Pox, MRSA - Past Surgical History Head Surgeries/Procedures: Reports: None HEENT Surgical History: Reports: None Cardiovascular Surgical History: Reports: None Respiratory Surgical History: Reports: None GI Surgical History: Reports: Cholecystectomy Female Surgical History: Reports: Other (See Below) Other Female Surgeries/Procedures: abdoul salpingectomy, TVT Endocrine Surgical History: Reports: None Neurological Surgical History: Reports: None Musculoskeletal Surgical History: Reports: None Oncologic Surgical History: Reports: None Dermatological Surgical History: Reports: None - SUBSTANCE USE Smoking Status *Q: Never Smoker Days Per Week of Alcohol Use: 5 Number of Drinks Per Day: 4 Total Drinks Per Week: 20 Recreational Drug Use History: No - HOME MEDS Home Medications: Home Meds Melatonin 3 mg PO BEDTIME PRN 06/10/19 [History] lamoTRIgine [Lamotrigine] 150 mg PO DAILY 06/10/19 [History] Escitalopram Oxalate [Lexapro] 10 mg PO DAILY 11/02/19 [History] hydrOXYzine HCL [hydrOXYzine] 0.5 tab PO DAILY PRN 11/02/19 [History] - CURRENT (IN HOUSE) MEDS Current Meds: Current Medications Sodium Chloride (Saline Flush) 10 ml FLUSH ASDIRECTED PRN PRN Reason: Keep Vein Open Last Admin: 11/02/19 11:36 Dose: 10 ml Sodium Chloride (Saline Flush) 2.5 ml FLUSH ASDIRECTED PRN PRN Reason: Keep Vein Open Last Admin: 11/02/19 11:36 Dose: 2.5 ml Discontinued Medications Sodium Chloride (Normal Saline) 1,000 mls @ 999 mls/hr IV STAT ONE Stop: 11/02/19 12:06 Last Admin: 11/02/19 11:22 Dose: 999 mls/hr Iopamidol (Isovue Multipack-370 (76%)) 100 ml IVPUSH ONETIME STA Stop: 11/02/19 12:14 Last Admin: 11/02/19 12:25 Dose: 100 ml Ketorolac Tromethamine (Toradol) 30 mg IVPUSH ONETIME ONE Stop: 11/02/19 11:07 Last Admin: 11/02/19 11:22 Dose: 30 mg
[2019-11-02] MEDS ORDERED: Bupivacaine 0.25%/EPINEPHrine 1:200,000 10 ML SDV ONE (13:17)
[2019-11-02] MEDS ORDERED: Lidocaine 2% 5 ML SDV ONE (13:19)
[2019-11-02] MEDS ORDERED: fentaNYL 250 MCG/5 ML SDV ONE (13:19)
[2019-11-02] MEDS ORDERED: Ondansetron 4 MG/2 ML SDV ONE (13:19)
[2019-11-02] MEDS ORDERED: Succinylcholine/Sod PF 100 MG/5 ML SYRINGE IV ONE (13:19)
[2019-11-02] MEDS ORDERED: Propofol 200 MG/20 ML SDV ONE (13:19)
[2019-11-02] MEDS ORDERED: Rocuronium 100 MG/10 ML Syringe ONE (13:19)
[2019-11-02] MEDS ORDERED: Sugammadex Sodium 200 MG/2 ML VIAL ONE (13:19)
[2019-11-02] MEDS ORDERED: Dexamethasone 4 MG/ML 5 ML MDV ONE (13:19)
[2019-11-02] MEDS ORDERED: Midazolam 1 MG/ML 2 ML SDV ONE (13:20)
[2019-11-02] MEDS ORDERED: Sodium Chloride 0.9% 10 ML SDV IV PRN (13:25)
[2019-11-02] MEDS ORDERED: cefOXitin 2 GM in Premix Bag 1 BAG IV ONE (13:32)
--- NOTE | 2019-11-02 13:36 | PCM.SN.2 ---
- Free Text/Narrative Note: pt seen, chart reviewed; acute appendicitis; to OR, lap vs open appendectomy; dw pt re bleeding/infection/drain placement/postop course/possible postop abscess; pt concurred and proceed; [id number]
[2019-11-02] MEDS ORDERED: Lactated Ringers 1,000 ML IV SCH (13:45)
[2019-11-02] MEDS ORDERED: fentaNYL 100 MCG/2 ML SDV IVPUSH PRN (14:40)
[2019-11-02] MEDS ORDERED: 50% Dextrose in Water 50 ML Syringe IVPUSH PRN (14:40)
[2019-11-02] MEDS ORDERED: EPINEPHrine 1:10,000 1 MG/10 ML Syringe IVPUSH PRN (14:40)
[2019-11-02] MEDS ORDERED: Albuterol 0.083% 2.5 MG/3 ML Neb Soln NEB PRN (14:40)
[2019-11-02] MEDS ORDERED: Naloxone 0.4 MG/ML Syringe IVPUSH PRN (14:40)
[2019-11-02] MEDS ORDERED: Atropine 0.1 MG/ML 10 ML Syringe IVPUSH PRN ×2 (14:40)
[2019-11-02] MEDS ORDERED: Midazolam 1 MG/ML 2 ML SDV IVPUSH PRN (15:47)
[2019-11-02] MEDS ORDERED: Acetaminophen/oxyCODONE 325-5 MG Tab PO PRN (15:56)
[2019-11-02] MEDS ORDERED: Ondansetron 4 MG/2 ML SDV IVPUSH PRN (15:57)
[2019-11-02] MEDS: Ketorolac 30 MG/ML SDV IVPUSH PRN ×2 (16:03→23:04)
[2019-11-02] MEDS ORDERED: Promethazine 25 MG/ML SDV IM ONE (16:10)
--- NOTE | 2019-11-02 16:19 | PCM.OPNOTE ---
- General Post-Op/Procedure Note Date of Surgery/Procedure: 11/02/19 Operative Procedure(s): lap appendectomy Findings: appendix is severely engulged by surrounding structures, hard, indulated, hyperemic, and dilated; gross perf not observed; [id number] Pre Op Diagnosis: acute appendicitis Post-Op Diagnosis: Same Anesthesia Technique: General ET Tube Primary Surgeon: Clark Bae Pathology: sent Complications: None Condition: Stable Free Text/Narrative:: Intake & Output 11/02/19 11/02/19 11/02/19 06:59 14:59 22:59 Output Total 250 Balance -250
--- NOTE | 2019-11-02 16:27 | PCM.POSTAN ---
POST ANESTHESIA ASSESSMENT - MENTAL STATUS Mental Status: Alert, Oriented - VITAL SIGNS Vital Signs: Last Vital Signs Temp 36.4 C 11/02/19 15:36 Pulse 70 11/02/19 16:21 Resp 10 L 11/02/19 16:21 BP 115/55 L 11/02/19 16:21 Pulse Ox 94 L 11/02/19 16:21 - RESPIRATORY Respiratory Status: Respiratory Rate WNL, Airway Patent, O2 Saturation Stable - CARDIOVASCULAR CV Status: Pulse Rate WNL, Blood Pressure Stable - GASTROINTESTINAL GI Status: No Symptoms - POST OP HYDRATION Hydration Status: Adequate & Stable
[2019-11-02] MEDS: Lactated Ringers 1,000 ML IV SCH (16:49)
[2019-11-02] MEDS: Morphine 4 MG/ML Syringe IVPUSH PRN (17:56)
[2019-11-02] MEDS ORDERED: Morphine 10 MG/ML Syringe IVPUSH ONE (20:36)
[2019-11-02] MEDS ORDERED: Diazepam 5 MG Tab PO ONE (20:37)
[2019-11-03] MEDS: Morphine 4 MG/ML Syringe IVPUSH PRN (02:34)
[2019-11-03] MEDS: Lactated Ringers 1,000 ML IV SCH (05:30)
--- NOTE | 2019-11-03 07:49 | CONS ---
DATE OF CONSULTATION: 11/02/2019 DATE OF : 1990 PRIMARY CARE PHYSICIAN: Farheen Levi NP REASON FOR CONSULTATION: This is a consult from Yamile Will. Consulting question, acute appendicitis. HISTORY OF PRESENT ILLNESS: The patient is a 29-year-old obese lady, complained over 3-day history of acute onset of right lower quadrant pain, periumbilical, and subsequently migrated to right lower quadrant. Sought help in the emergency room today and got a CAT scan. It shows acute appendicitis, dilated appendix with inflammatory change in the periappendiceal, and Surgery was then consulted. The patient denied emesis, but complained of nausea and denied fever, chill, or diarrhea. Denied prior episode. Last meal was the day before. ALLERGIES: Please refer to nursing for details. MEDICATIONS: Please refer to nursing for details. FAMILY HISTORY: No malignant hyperthermia. PAST SURGICAL HISTORY: The patient has a lot of surgery, tonsil and adenoid in childhood and salpingectomy and transvaginal hysterectomy and laparoscopic cholecystectomy. PHYSICAL EXAMINATION: GENERAL: A very pleasant lady, smiled to the doctor, very polite and cooperating. HEENT: Normocephalic and atraumatic. Sclerae anicteric. LUNGS: Clear to auscultation. HEART: Regular rate and rhythm. ABDOMEN: Soft, nondistended. No pulsating tender midline abdominal structure. Obese. Exquisite tenderness at the McBurney's point. Also, positive Rovsing's sign. LABORATORY DATA: Upon consultation, white count 12, H and H are 13 and 39, platelets are 300,000. Sodium is 138, potassium is 4.1, BUN is 9, creatinine is 1.0. Liver function test is more or less normal. CAT scan reading consistent with appendicitis. IMPRESSION: Acute appendicitis, consistent with history and physical. Will benefit from timely surgical intervention. Risks and benefits discussed with the patient including, but not excluding, bleeding, infection, and damage to nearby organ, and if perforated, we will also put a drain, and postop course. The patient concurred to proceed as planned. As always, thank you for the kind referral. RADHA / JUJU /[id number]
--- NOTE | 2019-11-03 07:56 | PCM48HPAN ---
Post Anesthesia Note - EVALUATION WITHIN 48HRS OF ANESTHETIC Vital Signs in Normal Range: Yes Patient Participated in Evaluation: Yes Respiratory Function Stable: Yes Airway Patent: Yes Cardiovascular Function Stable: Yes Hydration Status Stable: Yes Pain Control Satisfactory: Yes Nausea and Vomiting Control Satisfactory: Yes Mental Status Recovered: Yes Vital Signs: Last Vital Signs Temp 36.2 C 11/03/19 03:33 Pulse 76 11/03/19 03:33 Resp 18 11/03/19 03:33 BP 117/56 L 11/03/19 03:33 Pulse Ox 96 11/03/19 03:33
[2019-11-03] MEDS: Ketorolac 30 MG/ML SDV IVPUSH PRN (08:25)
--- NOTE | 2019-11-03 08:34 | OR ---
SURGEON: Clark Bae MD DATE OF PROCEDURE: 11/02/2019 PREOPERATIVE DIAGNOSIS: Acute appendicitis. POSTOPERATIVE DIAGNOSIS: Acute appendicitis. PROCEDURE PERFORMED: Laparoscopic appendectomy with Surgicel insertion. PRIMARY SURGEON: Clark Bae MD COMPLICATIONS: None. FINDINGS: Appendix is severely engulfed by surrounding structure, attached to the abdominal wall, hard, indurated, hyperemic, and dilated. Gross perforation not observed. A piece of Surgicel was inserted for hemostasis. DESCRIPTION OF PROCEDURE: The patient was taken to the operating room and placed in the supine position. Following induction of general endotracheal anesthesia, the patient's abdomen was prepped and draped in the sterile fashion. A time-out has been called. The patient was identified. The procedure was identified. The antibiotics were identified. The procedure then proceeded. The abdomen was prepped and draped in a standard fashion. After assessment of appropriate landmarks, a 12 millimeter trocar was inserted supraumbilically using Optiview and pneumoperitoneum was then achieved. This was followed with placement of 5 millimeter port in the right upper quadrant and another 5 millimeter port infraumbilically. The camera was inserted supraumbilical site and two laparoscopic [place] retractors were then inserted through the other two sites. Following the cecum, the appendix was located. The appendix was then lifted up, and using a GI stapler the appendix was amputated at the base. And using the GI stapler, the mesoappendix was then amputated. The appendix was retrieved by an endoscopic bag and sent for pathologist. This was then followed by re-insertion of the camera to examine the staple line, and hemostasis. The trocars were then removed. The umbilical site was closed with 2-0 Vicryl deep stitch and 4 -0 Vicryl and Dermabond; the other 2 5 mm port sites were closed with 4-0 Vicryl and Dermabond. The patient was then awakened, extubated, and transferred to the recovery room in hemodynamically stable condition. Prior to closing, sponge count and instrument count was correct. Intraoperative findings as dictated. At the end of surgery, a piece of Surgicel was inserted for hemostasis and the skin was approximated by use of skin staple rather than suture and followed by appropriate dressing. Dr. Bae was present throughout the whole procedure. As always, thank you for the kind referral. RADHA / JUJU /[id number]
== END 2019-11-03 10:00 | disposition home or self-care (01) ==
LOC: MW.ED 10:40 → MW.SDS 13:06 → MW.MS 16:23 → MW.SDS 11-03 10:00
PROVIDERS: ATTEND Surgery
DX: K35.80 Unspecified acute appendicitis (principal); K36 Other appendicitis; F41.9 Anxiety disorder, unspecified; F32.9 Major depressive disorder, single episode, unspecified; E66.9 Obesity, unspecified; Z20.828 Contact with and (suspected) exposure to other viral communicable diseases; Z90.49 Acquired absence of other specified parts of digestive tract; Z88.8 Allergy status to other drugs, medicaments and biological substances; Z68.43 Body mass index [BMI] 50.0-59.9, adult
CPT/HCPCS: 44970; 74177; 80053; 81001; 81025; 85025; 87635; 96361; 96374; 99285; C1776; J0131; J0330; J0694; J1100; J1885; J2001; J2250; J2270; J2405; J2550; J2704; J3010; J3490; J7030; J7050; J7120; Q9967; U0002

== ENCOUNTER 2019-11-19 18:41 | Emergency (ER) | payer BC, MEDICAID ==
[2019-11-19] MEDS ORDERED: Ketorolac 30 MG/ML SDV IVPUSH ONE (19:47)
[2019-11-19] MEDS ORDERED: Sodium Chloride 0.9% 1,000 ML IV ONE (19:47)
--- NOTE | 2019-11-19 19:51 | EDM.PDOC ---
ED HPI GENERAL MEDICAL PROBLEM - General Chief Complaint: Back Pain or Injury Stated Complaint: BACK PAIN Time Seen by Provider: 11/19/19 19:34 Source of Information: Reports: Patient History Limitations: Reports: No Limitations - History of Present Illness INITIAL COMMENTS - FREE TEXT/NARRATIVE: HISTORY AND PHYSICAL: History of present illness: Patient is a 29-year-old female who presents to the emergency room with complaints of bilateral flank pain that will wrap to her front and intermittent nausea x3 days. Patient reports that she had an appendectomy on 11/02/2019, which was unremarkable and had no postoperative complications. She has been "taking it easy" but slowly getting back into physical activity. Over the past 3 days she has had bilateral flank pain/muscular back pain that will occasionally wrap to her mid abdomen and states "I think it is my kidneys". Denies any injury, trauma or falls. Patient denies any fever, chills, headache , change in vision, syncope or near syncope. Denies any chest pain, shortness of breath or cough. Denies any vomiting, diarrhea, constipation or dysuria. Has not noted any blood in urine or stool. Denies any chance of . Patient has been eating and drinking appropriately. Review of systems: As per history of present illness and below otherwise all systems reviewed and negative. Past medical history: As per history of present illness and as reviewed below otherwise noncontributory. Surgical history: As per history of present illness and as reviewed below otherwise noncontributory. Social history: See social history for further information Family history: As per history of present illness and as reviewed below otherwise noncontributory. Physical exam: General: Well-developed and well-nourished 29-year-old female. Alert and oriented. Nontoxic-appearing and in no acute distress. HEENT: Atraumatic, normocephalic, pupils equal and reactive bilaterally, negative for conjunctival pallor or scleral icterus, mucous membranes moist, TMs normal bilaterally, throat clear, neck supple, nontender, trachea midline. No drooling or trismus noted. No meningeal signs. No hot potato voice noted. Lungs: Clear to auscultation, breath sounds equal bilaterally, chest nontender. Heart: S1S2, regular rate and rhythm without overt murmur Abdomen: Soft, nondistended, nontender. Negative for masses or hepatosplenomegaly. Mild bilateral costovertebral tenderness. Pelvis: Stable nontender. Skin: Intact, warm, dry. No lesions or rashes noted. C-spine/Back: No pinpoint vertebral tenderness upon palpation. No crepitus, step -offs or obvious deformities. Upper lumbar paraspinous muscular back pain bilaterally. Patient is ambulatory into the emergency room without difficulty or deficit. Able to rock back on heels and walk on toes. Denies any urinary or fecal incontinence. Denies any numbness, tingling or saddle paresthesia. Extremities: Atraumatic, moves all extremities per self without difficulty or deficits, negative for cords or calf pain. Neurovascular unremarkable. Neuro: Awake, alert, oriented. Cranial nerves II through XII unremarkable. Cerebellum unremarkable. Motor and sensory unremarkable throughout. Exam nonfocal. Notes: Lab work is unremarkable. CT of the abdomen and pelvis shows no acute findings. She continues to have the bilateral back muscular pain, will treat as a muscular strain. It is likely that she had not done much physical activity post surgery and now that she is starting to move around she may have overdone it. We discussed signs and symptoms that would prompt her to return to the emergency room. Medication and supportive care measures were reviewed and discussed. Voices understanding and is agreeable to plan of care. Denies any further questions or concerns at this time. Diagnostics: CBC, CMP, UA Therapeutics: IV fluid, Toradol, flexeril Prescription: Flexeril and Diclofenac Impression: Lumbago Plan: 1. The medication you received today does cause drowsiness, so do not drive for the remaining day 2. When resting please lay on a flat firm surface. Limit your immobility to prevent muscle stiffness. Get up to ambulate/move around/gentle stretching multiple times throughout the day. May alternate heat and ice to the painful areas 3. Tylenol as needed for back pain. Otherwise take the prescribed Flexeril and diclofenac as directed. Diclofenac is an anti-inflammatory so do not take any additional NSAIDs with this medication, such as ibuprofen or Aleve. Flexeril as a muscle relaxant, this medication may cause drowsiness a do not take it will driving her needing to be functioning outside of the house. 4. Please follow-up with your primary care provider as we discussed. Return to the ED as needed and as discussed. Definitive disposition and diagnosis as appropriate pending reevaluation and review of above. Bilateral Flank Pain Score (Numeric/FACES): 7 - Related Data Allergies Allergy/AdvReac Type Severity Reaction Status Date / Time terbinafine Allergy Hives Verified 11/19/19 19:46 Home Meds: Home Meds Melatonin 3 mg PO BEDTIME PRN 06/10/19 [History] Escitalopram Oxalate [Lexapro] 10 mg PO DAILY 11/02/19 [History] Cyclobenzaprine [Flexeril] 10 mg PO TID PRN #21 tab 11/19/19 [Rx] Diclofenac Sodium [Voltaren] 75 mg PO BIDMEALS PRN #30 tab.cr 11/19/19 [Rx] lamoTRIgine [LaMICtal] 150 mg PO DAILY 11/19/19 [History] Past Medical History HEENT History: Reports: Other (See Below) Other HEENT History: wears glasses Cardiovascular History: Reports: None Respiratory History: Reports: Other (See Below) Other Respiratory History: asthma as a child Gastrointestinal History: Reports: Other (See Below) Other Gastrointestinal History: occasional heartburn Genitourinary History: Reports: Other (See Below) Other Genitourinary History: stress incontinence [employer] History: Reports: Musculoskeletal History: Reports: Back Pain, Chronic, Fracture Other Musculoskeletal History: hx fx ankle as a child Neurological History: Reports: None Psychiatric History: Reports: Anxiety, Depression, PTSD Other Psychiatric History: panic disorder Endocrine/Metabolic History: Reports: Obesity/BMI 30+ Hematologic History: Reports: None Immunologic History: Reports: None Oncologic (Cancer) History: Reports: None Dermatologic History: Reports: None - Infectious Disease History Infectious Disease History: Reports: Chicken Pox, MRSA - Past Surgical History Head Surgeries/Procedures: Reports: None HEENT Surgical History: Reports: None Cardiovascular Surgical History: Reports: None Respiratory Surgical History: Reports: None GI Surgical History: Reports: Cholecystectomy Female Surgical History: Reports: Other (See Below) Other Female Surgeries/Procedures: abdoul salpingectomy, TVT Endocrine Surgical History: Reports: None Neurological Surgical History: Reports: None Musculoskeletal Surgical History: Reports: None Oncologic Surgical History: Reports: None Dermatological Surgical History: Reports: None Social & Family History - Family History Family Medical History: Noncontributory ED ROS GENERAL - Review of Systems Review Of Systems: Comprehensive ROS is negative, except as noted in HPI. ED EXAM,LOWER BACK PAIN/INJURY - Physical Exam Exam: See Below (See dictation) Course - Vital Signs Last Recorded V/S: Last Vital Signs Temp 96.2 F L 11/19/19 19:48 Pulse 84 11/19/19 19:48 Resp 18 11/19/19 19:48 BP 130/76 11/19/19 19:48 Pulse Ox 98 11/19/19 19:48 - Orders/Labs/Meds Labs: Laboratory Tests 11/19/19 11/19/19 11/19/19 Range/Units 20:06 20:23 20:23 WBC 7.97 (4.0-11.0) K/uL RBC 4.31 (4.30-5.90) M/uL Hgb 12.7 (12.0-16.0) g/dL Hct 39.4 (36.0-46.0) % MCV 91.4 (80.0-98.0) fL MCH 29.5 (27.0-32.0) pg MCHC 32.2 (31.0-37.0) g/dL RDW Std Deviation 45.1 (28.0-62.0) fl RDW Coeff of Yolanda 14 (11.0-15.0) % Plt Count 334 (150-400) K/uL MPV 9.50 (7.40-12.00) fL Neut % (Auto) 55.0 (48.0-80.0) % Lymph % (Auto) 35.6 (16.0-40.0) % [place] % (Auto) 5.8 (0.0-15.0) % Eos % (Auto) 3.3 (0.0-7.0) % Baso % (Auto) 0.3 (0.0-1.5) % Neut # (Auto) 4.4 (1.4-5.7) K/uL Lymph # (Auto) 2.8 H (0.6-2.4) K/uL [place] # (Auto) 0.5 (0.0-0.8) K/uL Eos # (Auto) 0.3 (0.0-0.7) K/uL Baso # (Auto) 0.0 (0.0-0.1) K/uL Nucleated RBC % 0.0 /100WBC Nucleated RBCs # 0 K/uL Sodium 141 (136-145) mmol/L Potassium 3.8 (3.5-5.1) mmol/L Chloride 103 (98-107) mmol/L Carbon Dioxide 28.1 (21.0-32.0) mmol/L BUN 15 (7.0-18.0) mg/dL Creatinine 1.0 (0.6-1.0) mg/dL Est Cr Clr Drug Dosing 88.31 mL/min Estimated GFR (MDRD) > 60.0 ml/min Glucose 92 (74-106) mg/dL Calcium 9.3 (8.5-10.1) mg/dL Total Bilirubin 0.6 (0.2-1.0) mg/dL AST 41 H (15-37) IU/L ALT 37 (14-63) IU/L Alkaline Phosphatase 83 (46-116) U/L Total Protein 7.9 (6.4-8.2) g/dL Albumin 4.1 (3.4-5.0) g/dL Globulin 3.8 (2.6-4.0) g/dL Albumin/Globulin Ratio 1.1 (0.9-1.6) Urine Color YELLOW Urine Appearance CLEAR Urine pH 5.5 (5.0-8.0) Ur Specific [place] 1.025 (1.001-1.035) Urine Protein NEGATIVE (NEGATIVE) mg/dL Urine Glucose (UA) NEGATIVE (NEGATIVE) mg/dL Urine Ketones NEGATIVE (NEGATIVE) mg/dL Urine Occult Blood TRACE-INTACT H (NEGATIVE) Urine Nitrite NEGATIVE (NEGATIVE) Urine Bilirubin NEGATIVE (NEGATIVE) Urine Urobilinogen 0.2 (<2.0) EU/dL Ur Leukocyte Esterase NEGATIVE (NEGATIVE) Urine RBC 0-2 (0-2/HPF) Urine WBC 0-1 (0-5/HPF) Ur Epithelial Cells RARE (NONE-FEW) Urine Bacteria RARE (NEGATIVE) Meds: Medications Discontinued Medications Generic Name Dose Route Start Last Admin Trade Name Freq PRN Reason Stop Dose Admin Cyclobenzaprine HCl 10 mg 11/19/19 21:05 Flexeril PO 11/19/19 21:06 ONETIME ONE Sodium Chloride 1,000 mls @ 999 mls/hr 11/19/19 19:47 11/19/19 20:24 Normal Saline IV 11/19/19 20:47 999 mls/hr STAT ONE Administration Ketorolac Tromethamine 30 mg 11/19/19 19:47 11/19/19 20:24 Toradol IVPUSH 11/19/19 19:48 30 mg ONETIME ONE Administration Departure - Departure Time of Disposition: 21:14 Disposition: Home, Self-Care 01 Clinical Impression: Lumbago Qualifiers: Chronicity: acute Back pain laterality: bilateral Sciatica presence: without sciatica Qualified Code(s): M54.5 - Low back pain - Discharge Information Prescriptions: Cyclobenzaprine [Flexeril] 10 mg PO TID PRN #21 tab PRN Reason: Muscle Spasm Diclofenac Sodium [Voltaren] 75 mg PO BIDMEALS PRN #30 tab.cr PRN Reason: Pain Instructions: Acute Back Pain, Adult Referrals: PCP,None [Primary Care Provider] - Forms: ED Department Discharge Additional Instructions: The following information is given to patients seen in the emergency department who are being discharged to home. This information is to outline your options for follow-up care. We provide all patients seen in our emergency department with a follow-up referral. The need for follow-up, as well as the timing and circumstances, are variable depending upon the specifics of your emergency department visit. If you don't have a primary care physician on staff, we will provide you with a referral. We always advise you to contact your personal physician following an emergency department visit to inform them of the circumstance of the visit and for follow-up with them and/or the need for any referrals to a consulting specialist. The emergency department will also refer you to a specialist when appropriate. This referral assures that you have the opportunity for follow-up care with a specialist. All of these measure are taken in an effort to provide you with optimal care, which includes your follow-up. Under all circumstances we always encourage you to contact your private physician who remains a resource for coordinating your care. When calling for follow-up care, please make the office aware that this follow-up is from your recent emergency room visit. If for any reason you are refused follow-up, please contact the Emergency Department at and asked to speak to the emergency department charge nurse. Primary Care [address] [place] [id number] [facility] [address] [place] [address] 1. The medication you received today does cause drowsiness, so do not drive for the remaining day 2. When resting please lay on a flat firm surface. Limit your immobility to prevent muscle stiffness. Get up to ambulate/move around/gentle stretching multiple times throughout the day. May alternate heat and ice to the painful areas 3. Tylenol as needed for back pain. Otherwise take the prescribed Flexeril and diclofenac as directed. Diclofenac is an anti-inflammatory so do not take any additional NSAIDs with this medication, such as ibuprofen or Aleve. Flexeril as a muscle relaxant, this medication may cause drowsiness a do not take it will driving her needing to be functioning outside of the house. 4. Please follow-up with your primary care provider as we discussed. Return to the ED as needed and as discussed. Sepsis Event Note - Focused Exam Vital Signs: Vital Signs Temp Pulse Resp BP Pulse Ox 11/19/19 19:48 96.2 F L 84 18 130/76 98 Date Exam was Performed: 11/19/19 Time Exam was Performed: 21:14
[2019-11-19 20:58] LABS: BLOOD UREA NITROGEN,BUN 15 mg/dL (7.0-18.0); CARBON DIOXIDE,CO2 28.1 mmol/L (21.0-32.0); CHLORIDE,CL 103 mmol/L (98-107); GLUCOSE RANDOM 92 mg/dL (74-106); POTASSIUM,K 3.8 mmol/L (3.5-5.1); SODIUM,NA 141 mmol/L (136-145)
--- NOTE | 2019-11-19 21:03 | CT ---
CT abdomen and pelvis Technique: Multiple axial sections were obtained from above the dome of the diaphragm inferiorly through the pubic symphysis. Intravenous and oral contrast not utilized. Study has been performed as a ureteral stone protocol. Findings: Kidneys show no abnormal calcifications. No ureteral dilatation or ureteral calculus is seen. Other findings: Visualized lung bases show nothing acute. Noncontrast appearance of the liver shows no discrete abnormality. Spleen appears within normal limits. Surgical clips are noted from prior cholecystectomy. Adrenal glands show no nodule. Pancreas shows no discrete abnormality. Aorta shows no aneurysm. No retroperitoneal adenopathy or mesenteric abnormalities are seen. Surgical clips are seen presumably from prior appendectomy as the appendix is not seen. No pelvic mass or adenopathy is seen. No free fluid or inflammatory change is appreciated. Slight haziness within the fat surrounding the umbilicus is seen presumably due to previous surgery. Bone window settings were reviewed. No acute osseous finding is appreciated. Impression: 1. No renal calculi, ureteral dilatation or ureteral stone is seen. 2. Nothing acute is seen. Other findings believed to be incidental as noted above. Diagnostic code #2 This report was dictated in MDT
[2019-11-19] MEDS ORDERED: Cyclobenzaprine 10 MG Tab PO ONE (21:05)
== END 2019-11-19 21:23 | disposition home or self-care (01) ==
LOC: MW.ED 18:41
DX: M54.5 Low back pain (principal); F41.9 Anxiety disorder, unspecified; F32.9 Major depressive disorder, single episode, unspecified; E66.9 Obesity, unspecified; Z68.43 Body mass index [BMI] 50.0-59.9, adult; Z88.8 Allergy status to other drugs, medicaments and biological substances; Z79.899 Other long term (current) drug therapy
CPT/HCPCS: 36415; 74176; 80053; 81001; 85025; 96374; 99284; A9270; J1885; J7030; 99283